=== PATIENT | male | born 1940 | race Caucasian/White ===

== ENCOUNTER 2017-11-17 08:40 | Inpatient (IN) | payer MEDICARE, BC ==
[~2017-11-17] VITALS: Ht 167.6 cm; Wt 97.5 kg
[2017-11-17] MEDS ORDERED: SIMVASTATIN20 MG PO (15:16)
[2017-12-08] VITALS (8 sets, daily range): BP systolic 125–153; BP diastolic 61–81
[2017-12-09] VITALS: BP 138/69
[2017-12-09 04:00] VITALS: BP 124/70
[2017-12-09 05:24] LABS: IMMATURE GRANULOCYTES 0.3 % (0.0-5.0); MEAN CELL VOLUME 96.3 fL CALC (80.0-100.0); MEAN CORPUSCULAR HGB 31.8 pG CALC (26.0-32.0); NEUT# 12.24 thou/uL (1.82-7.42); RED BLOOD COUNT 3.49 mill/uL (4.70-6.10); RED CELL DISTRI WIDTH 13.3 % (11.5-15.5)
[2017-12-09 05:26] LABS: HEMATOCRIT 33.6 % (39.0-50.0); HEMOGLOBIN 11.1 g/dl (14.0-18.0)
[2017-12-09 05:46] LABS: ALKALINE PHOSPHATASE 49 u/l (38-126); ANION GAP 11 (6-22 (CALC)); BILIRUBIN, TOTAL 0.4 mg/dL (0.0-1.4); BUN 12 mg/dL (8-23); BUN/CREATININE RATIO 15 (12-20 (CALC)); CARBON DIOXIDE 27 mmol/l (22-30); CHLORIDE 106 mmol/l (95-108); CREATININE 0.8 mg/dL (0.7-1.3); GFR > 60 ML/MIN (>=60 (CALC)); GFR FOR AFR.AMER. > 60 ML/MIN (>=60 (CALC)); MAGNESIUM 1.9 mg/dL (1.6-2.3); POTASSIUM 4.7 mmol/l (3.5-5.1); SGOT/AST 28 u/l (19-48); SODIUM 139 mmol/l (137-146)
[2017-12-09 05:58] LABS: ALBUMIN 2.9 g/dL (3.2-5.0); TOTAL PROTEIN 5.2 g/dL (6.3-8.2)
[2017-12-09 07:27] VITALS: BP 146/78
[2017-12-09 11:41] VITALS: BP 126/68
[2017-12-09 15:43] VITALS: BP 130/65
[2017-12-09 19:11] VITALS: BP 137/71
[2017-12-10 00:37] VITALS: BP 181/90
[2017-12-10 04:14] VITALS: BP 171/95; BP 183/78
[2017-12-10 05:03] LABS: HEMATOCRIT 33.5 % (39.0-50.0); HEMOGLOBIN 10.9 g/dl (14.0-18.0); IMMATURE GRANULOCYTES 0.3 % (0.0-5.0); MEAN CELL VOLUME 97.1 fL CALC (80.0-100.0); MEAN CORPUSCULAR HGB 31.6 pG CALC (26.0-32.0); MEAN CORPUSCULAR HGB CONC 32.5 g/L CALC (32.0-36.0); NEUT# 10.27 thou/uL (1.82-7.42); RED BLOOD COUNT 3.45 mill/uL (4.70-6.10); RED CELL DISTRI WIDTH 13.7 % (11.5-15.5)
[2017-12-10 05:11] LABS: ALKALINE PHOSPHATASE 48 u/l (38-126); ANION GAP 10 (6-22 (CALC)); BILIRUBIN, TOTAL 0.5 mg/dL (0.0-1.4); BUN 12 mg/dL (8-23); BUN/CREATININE RATIO 16 (12-20 (CALC)); CARBON DIOXIDE 26 mmol/l (22-30); CHLORIDE 109 mmol/l (95-108); CREATININE 0.8 mg/dL (0.7-1.3); GFR > 60 ML/MIN (>=60 (CALC)); GFR FOR AFR.AMER. > 60 ML/MIN (>=60 (CALC)); MAGNESIUM 1.9 mg/dL (1.6-2.3); POTASSIUM 4.2 mmol/l (3.5-5.1); SGOT/AST 31 u/l (19-48); SODIUM 141 mmol/l (137-146); TOTAL PROTEIN 5.4 g/dL (6.3-8.2)
[2017-12-10 08:10] VITALS: BP 149/74
[2017-12-10 11:30] VITALS: BP 146/73
[2017-12-10] MEDS ORDERED: TRAMADOL HCL50 MG PO (12:51)
== END 2017-12-10 13:18 | disposition home health service (06) | DRG 470 ==
LOC: MS2 11-28 07:30
PROVIDERS: Internal Medicine Nephrology; ADMIT Orthopaedic Surgery; ATTEND Orthopaedic Surgery
PROC: 0SR904A Replacement of Right Hip Joint with Ceramic on Polyethylene Synthetic Substitute, Uncemented, Open Approach (ICD-10-PCS; principal; 2017-12-08)
DX: M16.12 Unilateral primary osteoarthritis, left hip (principal); E78.5 Hyperlipidemia, unspecified
CPT/HCPCS: J2710

== ENCOUNTER 2020-10-03 03:14 | Emergency (ER) | payer MEDICARE, BC ==
[~2020-10-03 03:14] MED LIST: SIMVASTATIN20 MG PO; TRAMADOL HCL50 MG PO
[2020-10-03] MEDS ORDERED: SENOKOT8.6 MG PO (03:25)
[2020-10-03 04:06] LABS: HEMATOCRIT 44.4 % (39.0-50.0); HEMOGLOBIN 14.1 g/dl (14.0-18.0); IMMATURE GRANULOCYTES 0.2 % (0.0-5.0); MEAN CELL VOLUME 97.6 fL CALC (80.0-100.0); MEAN CORPUSCULAR HGB CONC 31.8 g/dL CAL (32.0-36.0); NEUT# 10.49 thou/uL (1.82-7.42); RED BLOOD COUNT 4.55 mill/uL (4.70-6.10); RED CELL DISTRI WIDTH 12.7 % (11.5-15.5)
[2020-10-03 04:08] LABS: URINE BILIRUBIN - DIPSTICK NEGATIVE (NEGATIVE); URINE BLOOD DIPSTICK NEGATIVE (NEGATIVE); URINE COLOR YELLOW; URINE GLUCOSE - DIPSTICK NEGATIVE (NEGATIVE); URINE KETONE NEGATIVE (NEGATIVE); URINE LEUK ESTERASE NEGATIVE (NEGATIVE); URINE PH 5.5 (4.5-8.0); URINE PROTEIN - DIPSTICK NEGATIVE (NEG-TRACE); URINE SPECIFIC GRAVITY 1.025; URINE UROBILINOGEN - DIPSTICK 0.2 E.U./dL (0.2)
[2020-10-03 04:09] LABS: URINE NITRITE - DIPSTICK NEGATIVE (Negative)
[2020-10-03 04:18] LABS: ALBUMIN 4.3 g/dL (3.2-5.0); ALKALINE PHOSPHATASE 57 u/l (38-126); ANION GAP 13 (6-22 (CALC)); BILIRUBIN, TOTAL 0.4 mg/dL (0.0-1.4); BUN 16 mg/dL (8-23); BUN/CREATININE RATIO 16 (12-20 (CALC)); CARBON DIOXIDE 26 mmol/l (22-30); CHLORIDE 104 mmol/l (95-108); GFR > 60 ML/MIN (>=60 (CALC)); GFR FOR AFR.AMER. > 60 ML/MIN (>=60 (CALC)); LIPASE 82 u/l (23-300); POTASSIUM 4.4 mmol/l (3.5-5.1); SGOT/AST 29 u/l (19-48); SODIUM 139 mmol/l (137-146); TOTAL PROTEIN 7.6 g/dL (6.3-8.2)
[2020-10-03] MEDS ORDERED: MIRALAX17 GM/SCOO PO (06:21)
[2020-10-03 06:45] VITALS: BP 150/75
== END 2020-10-03 06:45 | disposition home or self-care (01) ==
LOC: ED 03:14
DX: K59.00 Constipation, unspecified (principal)
CPT/HCPCS: Q9967